=== PATIENT | male | born 2005 | race Caucasian/White ===

== ENCOUNTER 2024-03-06 22:57 | Emergency (ER) | payer OTHER ==
[~2024-03-06] VITALS: Ht 172.7 cm; Wt 74.8 kg
[2024-03-07] MEDS ORDERED: CYCLOBENZAPRINE10 MG PO (00:01)
[2024-03-07] MEDS ORDERED: CYCLOBENZAPRINE HCL 10 MG HOME.PACK PO ONE (00:15)
[2024-03-07 00:27] VITALS: BP 121/75
== END 2024-03-07 00:29 | disposition home or self-care (01) ==
LOC: ED 22:57
DX: S43.402A Unspecified sprain of left shoulder joint, initial encounter (principal); X50.3XXA Overexertion from repetitive movements, initial encounter
CPT/HCPCS: 73030